=== PATIENT | male | born 1960 | race Caucasian/White ===

== ENCOUNTER 2021-07-09 09:50 | Observation (INO) | payer BC, OTHER ==
[~2021-07-09] VITALS: Ht 177.8 cm; Wt 87.0 kg
[~2021-07-09 09:50] MED LIST: ATOR40TA PO; BENA40TA90 PO; CARI350T PO; HYDR-3972 PO; MUPI22OI30 TP; OMEP20TA23 PO; TADA20TA PO; TICA90TA2 PO
[2021-07-09] MEDS ORDERED: aspirin 81mg tab.chew PO ONE (10:00)
[2021-07-09 10:25] LABS: BASOPHILS % (AUTO) 0.5 % (0-1); EOSINOPHILS % (AUTO) 0.3 % (0-6); HEMATOCRIT 30.2 % (42.0-52.0); HEMOGLOBIN 8.5 g/dl (14.0-17.9); LYMPHOCYTES # (AUTO) 1.1 X10'3 (1.1-4.8); LYMPHOCYTES % (AUTO) 11.6 % (21-51); MEAN CORPUSCULAR HEMOGLOBIN 18.8 PG (27.0-31.0); MEAN CORPUSCULAR HGB CONC 28.2 g/dL (33.0-36.5); MEAN CORPUSCULAR VOLUME 66.7 FL (78-98); MEAN PLATELET VOLUME 6.6 FL (7.4-10.4); MONOCYTES # (AUTO) 0.9 X10'3 (0-0.9); MONOCYTES % (AUTO) 9.4 % (2-12); NEUTROPHILS # (AUTO) 7.2 X10'3 (1.8-7.7); NEUTROPHILS % (AUTO) 78.2 % (42-75); PLATELET COUNT 543 X10'3 (140-440); RED BLOOD COUNT 4.52 X10'6 (4.70-6.10); RED CELL DISTRIBUTION WIDTH 20.7 % (11.5-14.5); WHITE BLOOD COUNT 9.2 X10'3 (4.5-11.0)
[2021-07-09] MEDS ORDERED: ASPI81TA52 PO (10:37)
[2021-07-09 10:38] LABS: ALANINE AMINOTRANSFERASE 26 U/L (12-78); ALBUMIN 3.8 G/DL (3.4-5.0); ALBUMIN/GLOBULIN RATIO 1.1 (1.1-1.5); ALKALINE PHOSPHATASE 73 IU/L (46-116); ANION GAP 12 (8-16); ASPARTATE AMINO TRANSFERASE 22 U/L (10-37); BILIRUBIN,TOTAL 0.5 MG/DL (0.1-1.0); BLOOD UREA NITROGEN 11 MG/DL (7-18); BUN/CREATININE RATIO 10.9 (5.4-32.0); CALCIUM 7.7 MG/DL (8.5-10.1); CHLORIDE 106 MMOL/L (99-107); CREATININE 1.01 MG/DL (0.60-1.10); GLUCOSE 103 MG/DL (70-104); POTASSIUM 3.3 MMOL/L (3.5-5.1); SODIUM 143 MMOL/L (135-145); TOTAL PROTEIN 7.3 G/DL (6.4-8.2); eGFR 76 ML/MIN
[2021-07-09 10:47] LABS: MAGNESIUM 1.7 MG/DL (1.5-2.4)
--- NOTE | 2021-07-09 11:40 | NUR ---
Called lab re: hematology lab pending since 1014. Lab states their machine was having difficulty and it should be released in 5 min. Pt alert, no apparent distress or needs, no chest pain at this time.
[2021-07-09 11:42] LABS: ANISOCYTOSIS 3+; PLATELET ESTIMATE INCREASED
[2021-07-09 11:43] LABS: ELLIPTOCYTES FEW; MICROCYTOSIS 2+; SCHISTOCYTES FEW
--- NOTE | 2021-07-09 12:51 | NUR ---
Pt 99% on RA. No O2 needed. Pt states CP since he had covid (04/07/21)
[2021-07-09] MEDS ORDERED: FLUT1BLS4 PO (13:09)
[2021-07-09] MEDS ORDERED: normal saline 1000ml 1,000 ML IV SCH (13:40)
[2021-07-09] MEDS ORDERED: magnesium 2GM in 50ml NS 50 ML IV PRN (13:40)
[2021-07-09] MEDS ORDERED: aminophylline 250mg/10ml inj. IV PRN (13:40)
[2021-07-09] MEDS ORDERED: regadenoson 0.4mg/5ml syringe IV PRN (13:40)
[2021-07-09] MEDS ORDERED: potassium Cl 20 mEq SR tablet PO PRN ×2 (13:40)
[2021-07-09] MEDS ORDERED: potassium CL 10mEq/100ml bag 100 ML IV PRN (13:40)
[2021-07-09] MEDS ORDERED: metoprolol tartrate 1mg/ml inj IV PRN (13:40)
[2021-07-09] MEDS ORDERED: magnesium Cl slow-release 64mg tablet PO PRN (13:40)
[2021-07-09] MEDS ORDERED: nitroGLYCERIN 0.4mg SUBLingual tab SL PRN (13:40)
[2021-07-09] MEDS ORDERED: magnesium 4gm in 100ml NS 100 ML IV PRN (13:40)
[2021-07-09 13:59] LABS: POTASSIUM 3.1 MMOL/L (3.5-5.1)
[2021-07-09] MEDS ORDERED: ALBU8.5H17 INH (14:03)
[2021-07-09] MEDS ORDERED: BENA1TAB14 PO (14:03)
--- NOTE | 2021-07-09 14:45 | NUR ---
Pt not wanting to be admitted. Would rather come back for a stress test in the morning. Notified the [facility] [employer] to give pt more information to make a decision.
[2021-07-09] MEDS ORDERED: HYDROcodone/acetaminophen 10/325mg tab PO ONE (15:00)
--- NOTE | 2021-07-09 16:00 | NUR ---
Pt agreed to stay. Updated pt on wait for inpatient bed. no needs at this time.
--- NOTE | 2021-07-09 18:33 | NUR ---
Pt requesting food and a nicotine patch. NOC nurse informed.
[2021-07-09] MEDS: K and/or MAG REPLACEMENT MC SCH (20:00)
[2021-07-09] MEDS: morphine 2 MG/ML inj. syringe IV PRN (20:20)
--- NOTE | 2021-07-09 20:31 | NUR ---
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
[2021-07-09] MEDS: heparin, porcine 5000 units/ml vial SQ SCH (20:54)
[2021-07-09] MEDS: docusate sod 100mg capsule PO SCH (20:54)
[2021-07-09] MEDS ORDERED: HYDROcodone/acetaminophen 10/325mg tab PO PRN (21:55)
[2021-07-09 22:30] VITALS: BP 140/78
[2021-07-10] VITALS (9 sets, daily range): BP systolic 143–155; BP diastolic 71–87
[2021-07-10] MEDS: morphine 2 MG/ML inj. syringe IV PRN ×3 (00:15→08:18)
--- NOTE | 2021-07-10 06:19 | NUR ---
Received pt from ED. Around 2300 pt complained of CP to left chest. Dr Mondragon notified , EKG done and compared from previous one. No changed noted Dr Mondragon said no extra pain medications or nitro can be added. Pt was informed that he will be given prn Morphine when due. Pt is NPO for stress test this AM [facility]
[2021-07-10 06:37] LABS: BASOPHILS % (AUTO) 0.6 % (0-1); EOSINOPHILS # (AUTO) 0.2 X10'3 (0-0.9); EOSINOPHILS % (AUTO) 2.2 % (0-6); LYMPHOCYTES # (AUTO) 1.2 X10'3 (1.1-4.8); LYMPHOCYTES % (AUTO) 17.7 % (21-51); MEAN PLATELET VOLUME 7.1 FL (7.4-10.4); MONOCYTES # (AUTO) 0.7 X10'3 (0-0.9); MONOCYTES % (AUTO) 10.3 % (2-12); NEUTROPHILS # (AUTO) 4.9 X10'3 (1.8-7.7); NEUTROPHILS % (AUTO) 69.2 % (42-75); PLATELET COUNT 484 X10'3 (140-440)
[2021-07-10 07:04] LABS: % IRON SATURATION 5 % (11-46); IRON 19 UG/DL (53-167); TOTAL IRON BINDING CAPACITY 407 UG/DL (259-388)
[2021-07-10 07:17] LABS: HEMATOCRIT 29.7 % (42.0-52.0); HEMOGLOBIN 9.1 g/dl (14.0-17.9); MEAN CORPUSCULAR HEMOGLOBIN 19.9 PG (27.0-31.0); MEAN CORPUSCULAR HGB CONC 30.5 g/dL (33.0-36.5); MEAN CORPUSCULAR VOLUME 65.2 FL (78-98); RED BLOOD COUNT 4.57 X10'6 (4.70-6.10)
[2021-07-10 07:18] LABS: RED CELL DISTRIBUTION WIDTH 19.7 % (11.5-14.5)
[2021-07-10 07:32] LABS: ALBUMIN 3.2 G/DL (3.4-5.0); ANION GAP 11 (8-16); BLOOD UREA NITROGEN 14 MG/DL (7-18); BUN/CREATININE RATIO 16.5 (5.4-32.0); CALCIUM 8.1 MG/DL (8.5-10.1); CHLORIDE 104 MMOL/L (99-107); CREATININE 0.85 MG/DL (0.60-1.10); GLUCOSE 91 MG/DL (70-104); MAGNESIUM 1.7 MG/DL (1.5-2.4); POTASSIUM 3.7 MMOL/L (3.5-5.1); SODIUM 140 MMOL/L (135-145); TOTAL CARBON DIOXIDE 25.4 MMOL/L (24-32); eGFR > 90 ML/MIN
[2021-07-10] MEDS: docusate sod 100mg capsule PO SCH (08:00)
[2021-07-10] MEDS: K and/or MAG REPLACEMENT MC SCH (08:00)
[2021-07-10] MEDS ORDERED: FLU VACC QS2021-22(6MOS UP)/PF 60 MCG/0.5 ML SYRINGE IM ONE (08:00)
[2021-07-10 08:12] LABS: ANISOCYTOSIS 2+; MICROCYTOSIS 2+; PLATELET ESTIMATE INCREASED
[2021-07-10 08:13] LABS: ELLIPTOCYTES FEW; HYPOCHROMASIA 1+; POLYCHROMASIA FEW
[2021-07-10] MEDS: heparin, porcine 5000 units/ml vial SQ SCH (08:25)
[2021-07-10] MEDS ORDERED: pantoprazole 40MG/NS 100ML BAG 100 ML IV SCH (10:30)
[2021-07-10] MEDS ORDERED: mag hydrox/Alum hydrox/simeth 30ml oral suspension PO ONE (10:30)
[2021-07-10] MEDS ORDERED: PERFLUTREN PROTEIN-A MICROSPHR (Optison) 0.22 MG/ML 3ML VIAL IV PRN (11:50)
--- NOTE | 2021-07-10 11:54 | NUR ---
Pt Adan Neymar Rm [id number] would like you to review his stress test result, because he wants to go home. Refused protonix . He said he will take his omeprazole at home.
== END 2021-07-10 13:45 | disposition home or self-care (01) ==
LOC: ER 09:51 → ED HOLD 13:41 → PCU 3S 20:40
PROVIDERS: ADMIT Internal Medicine; ATTEND Internal Medicine
DX: I25.110 Atherosclerotic heart disease of native coronary artery with unstable angina pectoris (principal); E87.6 Hypokalemia; I10 Essential (primary) hypertension; J44.9 Chronic obstructive pulmonary disease, unspecified; E78.5 Hyperlipidemia, unspecified; F17.210 Nicotine dependence, cigarettes, uncomplicated; Z86.16 Personal history of COVID-19; Z95.5 Presence of coronary angioplasty implant and graft; Z79.899 Other long term (current) drug therapy; Z23 Encounter for immunization; Z71.6 Tobacco abuse counseling
CPT/HCPCS: 36415; 71045; 80048; 80053; 83540; 83550; 83735; 83880; 84132; 84484; 85025; 87081; 90471; 90686; 93005; 93017; 93306; 96361; 96372; 96374; 96376; 99285; 99406; G0378; J1644; J2270; J2785; J7030; 85008